=== PATIENT | male | born 1940 | race Caucasian/White ===

== ENCOUNTER 2017-07-05 13:54 | Emergency (ER) | payer MEDICARE ==
[~2017-07-05] VITALS: Ht 167.6 cm; Wt 62.2 kg
[~2017-07-05 13:54] MED LIST: ACET325T14 PO; ASPI-496 PO; CARV6.252 PO; CLOP75TA52 PO; GLIM4TAB2 PO; LANS30TA6 PO; LISI-167 PO; METF100010 PO; PANT40TA3 PO; PRAV80TA2 PO; TICA90TA PO
[2017-07-05] MEDS ORDERED: METF500T4 PO (15:10)
[2017-07-05 16:09] LABS: BASOPHILS # (AUTO) 0.02 x10^3/uL (0-0.1); BASOPHILS % (AUTO) 0 % (0-1); EOSINOPHILS % (AUTO) 2 % (1-7); LYMPHOCYTES # (AUTO) 1.21 x10^3/uL (1-3.4); LYMPHOCYTES % (AUTO) 19 % (22-44); MD NO; MEAN CORPUSCULAR HEMOGLOBIN 31.9 pg (27.5-34.5); MEAN CORPUSCULAR HGB CONC 33.2 g/dL (33.2-36.2); MEAN CORPUSCULAR VOLUME 96.3 fL (81-97); MEAN PLATELET VOLUME 8.4 fL (7.4-10.4); MONOCYTES % (AUTO) 9 % (2-9); NEUTROPHILS # (AUTO) 4.45 x10^3/uL (1.8-6.8); NEUTROPHILS % (AUTO) 70 % (42-75); PLATELET COUNT 224 x10^3/uL (130-400); RED BLOOD COUNT 4.09 x10^6/uL (4.38-5.82); RED CELL DISTRIBUTION WIDTH 15.1 % (9.4-14.8)
[2017-07-05 16:17] LABS: ALANINE AMINOTRANSFERASE 12 U/L (12-78); ALBUMIN 3.5 g/dL (3.4-5.0); ANION GAP 6 mmol/L (5-15); CALCIUM 8.7 mg/dL (8.5-10.1); CHLORIDE 109 mmol/L (98-107); CREATININE 0.96 mg/dL (0.7-1.3)
[2017-07-05 16:21] LABS: ALKALINE PHOSPHATASE 131 U/L (45-117); BILIRUBIN,TOTAL 0.4 mg/dL (0.2-1.0); TOTAL PROTEIN 7.3 g/dL (6.4-8.2)
[2017-07-05 17:02] VITALS: BP 155/75
== END 2017-07-05 17:06 | disposition home or self-care (01) ==
LOC: ED 17:00
DX: H65.01 Acute serous otitis media, right ear (principal); J20.8 Acute bronchitis due to other specified organisms; E78.5 Hyperlipidemia, unspecified; E11.9 Type 2 diabetes mellitus without complications; I25.10 Atherosclerotic heart disease of native coronary artery without angina pectoris; I25.2 Old myocardial infarction; I10 Essential (primary) hypertension; Z87.891 Personal history of nicotine dependence
CPT/HCPCS: 36415; 71046; 80053; 83880; 85025; 93005; 99285